=== PATIENT | female | born 1990 | race American Indian/Alaskan Native ===

== ENCOUNTER 2022-03-09 19:32 | Emergency (ER) | payer SELFPAY ==
[2022-03-10 02:05] VITALS: BP 144/93
--- NOTE | 2022-03-10 07:46 | Emergency Department Report ---
Abscess Boil HPI - HPI Chief Complaint: Extremity Injury, Upper Stated Complaint: REAL NAIL CAME UP Time Seen by Provider: 03/10/22 07:43 Duration: Today Location: Upper Extremity Severity: Mild History: Yes Pain, No Fever, No Purulent Drainage, No Numbness, No Foreign Body, No Previous History, No Insect Bite HPI: 32 yo comes to ER with artificial nails about 2 inches long with nail jewlery on all nails. She is co that the she was messing around and hit her thumb and the real nail has lifted. I told her we do not remove nails in ER. Allergies/Adverse Reactions: Allergies Allergy/AdvReac Type Severity Reaction Status Date / Time banana Allergy Unknown Verified 03/09/22 21:11 shellfish derived Allergy Unknown Verified 03/09/22 21:11 ED Review of Systems ROS: Stated complaint: REAL NAIL CAME UP Other details as noted in HPI Comment: All other systems reviewed and negative ED Past Medical Hx - Past Medical History Previous Medical History?: Yes Additional medical history: HYPERTHYROID - Surgical History Past Surgical History?: No - Family History Family history: no significant - Social History Smoking Status: Never Smoker Substance Use Type: Alcohol ED Abscess Boil Physical Exam - Exam General: Vital signs noted. No distress. Alert and acting appropriately. Exam: Yes Tenderness, Yes Normal Neurologic Exam, Yes Normal Circulation, No Fluctuance, No Surrounding Cellulites/Erythema, No Lymphangitis, No Crepitation, No Heart Murmur ED Course Vital Signs 03/09/22 03/10/22 21:07 02:04 Temperature 97.8 F 98.6 F Pulse Rate 77 79 Respiratory 16 20 Rate Blood Pressure 144/88 144/93 O2 Sat by Pulse 100 100 Oximetry Critical care attestation.: If time is entered above; I have spent that time in minutes in the direct care of this critically ill patient, excluding procedure time. ED Medical Decision Making - Medical Decision Making Vital Signs 03/09/22 03/10/22 21:07 02:04 Temperature 97.8 F 98.6 F Pulse Rate 77 79 Respiratory 16 20 Rate Blood Pressure 144/88 144/93 O2 Sat by Pulse 100 100 Oximetry pt recommended to take her fake nails off and allow the nail to grow out. She has been given referral to podiatry. she verbalizes understanding dc home with dc plan of care including diet, meds, activity and follow up. - Differential Diagnosis nail injury ED Disposition Clinical Impression: Nailbed injury Disposition: 01 HOME / SELF CARE / HOMELESS Is pt being admited?: No Does the pt Need Aspirin: No Condition: Stable Additional Instructions: remove fake nails see podiatry as we discussed Referrals: SINAI WHITNEY MD [Staff Physician] - 3-5 Days LUCIANO LOWE DPM [Staff Physician] - 3-5 Days RICARDO STEWART DPM [Staff Physician] - 3-5 Days Forms: Work/School Release Form(ED) Time of Disposition: 07:44
== END 2022-03-10 19:00 | disposition home or self-care (01) ==
LOC: ED 19:32
DX: S61.101A Unspecified open wound of right thumb with damage to nail, initial encounter (principal); Z91.013 Allergy to seafood; Z91.018 Allergy to other foods; Z79.899 Other long term (current) drug therapy; W22.8XXA Striking against or struck by other objects, initial encounter; Y93.89 Activity, other specified; Y92.89 Other specified places as the place of occurrence of the external cause; Y99.8 Other external cause status
CPT/HCPCS: 99281